=== PATIENT | male | born 1950 | race Caucasian/White ===

== ENCOUNTER → 2021-09-19 09:18 | Outpatient (BNVA) | payer MEDICARE, OTHER, SELFPAY | PROVIDERS: Family Provider Nurse Practitioner Family; Visit Provider Nurse Practitioner | DX: Z20.822 Contact with and (suspected) exposure to COVID-19 (principal) | CPT/HCPCS: 87635 ==

== ENCOUNTER 2021-09-22 08:39 | Outpatient (CLI) | payer MEDICARE, OTHER, SELFPAY ==
[2021-09-22 08:47] VITALS: BMI 29.9
[2021-09-22 08:50] VITALS: BP 139/84; PULSE 101; RESP 18; TEMP 36.4; O2SAT 96
[2021-09-22 09:30] VITALS: BP 112/64; PULSE 98; RESP 18; TEMP 39.4; O2SAT 94
[2021-09-22 10:26] VITALS: BP 116/74; PULSE 97; RESP 17; TEMP 39.2; O2SAT 96
== END 2021-09-22 08:40 | disposition home or self-care (01) ==
LOC: OPS 08:42
PROVIDERS: PCP Nurse Practitioner; Visit Provider Nurse Practitioner
DX: U07.1 COVID-19 (principal)
CPT/HCPCS: 96365